=== PATIENT | male | born 1965 | race Caucasian/White ===

== ENCOUNTER 2017-09-21 10:48 | Outpatient (CLI) | payer BC | END 2017-09-21 10:49 | disposition home or self-care (01) | LOC: CTENTCT 10:48 | PROVIDERS: ATTEND Specialist | DX: J34.2 Deviated nasal septum (principal) | CPT/HCPCS: 70486 ==

== ENCOUNTER 2018-01-03 08:09 | Outpatient (CLI) | payer OTHER ==
--- NOTE | 2018-01-03 09:51 | MRI ---
CERVICAL SPINE MRI WITHOUT CONTRAST: Date: 01-03-18 History: Degenerative disc disease, neck pain, arthritis. Technique: Multiplanar, multisequence MR imaging of the cervical spine provided without contrast. FINDINGS: The sagittal STIR imaging demonstrates no focal area of osseous marrow edema. There is a round lesion in the subcutaneous fat of the posterior right upper neck at the axial level of the C2-3 level measuring approximately 1.4 cm. This could represent a complex sebaceous cyst. Clin ical correlation is required. C2-3: No central canal or neural foraminal stenosis. C3-4: There is disc space narrowing and disc desiccation and anterior osteophyte formation and mild d isc bulge with partial effacement of the ventral thecal sac and minimal central canal stenosis. There is facet and uncal vertebral osteophyte formation noted bilaterally, right greater than left, with m ild bilateral neural foraminal stenosis, right greater than left. C4-5: Disc space narrowing, disc desiccation, disc bulge and anterior osteophyte formation. Partial e ffacement of ventral thecal sac with mild central canal stenosis. Significant bilateral facet and unc al vertebral osteophyte formation noted with moderate/severe bilateral neural foraminal stenosis, lef t greater than right. C5-6: There is disc space narrowing, disc desiccation, and mild disc bulge. There is partial effaceme nt of the ventral thecal sac. There is prominent posterior osteophyte in the left paracentral region extending into the left foraminal region with associated central canal stenosis laterally and moderat e neural foraminal stenosis. There is mild right neural foraminal stenosis on the basis of facet and uncal vertebral osteophyte formation. C6-7: Disc space narrowing and disc desiccation and disc bulge present with mild central canal stenos is. There is prominent bilateral facet and uncal vertebral osteophyte formation, right greater than l eft, with moderate/severe bilateral neural foraminal stenosis. C7-T1: No significant central canal or neural foraminal stenosis. The cervical cord demonstrates normal signal intensity. IMPRESSION: There is multilevel degenerative change noted within the cervical spine with multilevel significant n eural foraminal stenosis. Recommend CT examination of the cervical spine to better assess the degree of facet and uncovertebral osteophyte formation. CT will also better assess the nonspecific lesion wi thin the subcutaneous fat posteriorly on the right. Recommend performing the CT of the neck with IV c ontrast. POS: [facility]
== END 2018-01-03 08:10 | disposition home or self-care (01) ==
LOC: TBSIIMAG 08:09
PROVIDERS: ATTEND Neurological Surgery
DX: M50.30 Other cervical disc degeneration, unspecified cervical region (principal); M47.892 Other spondylosis, cervical region; M48.02 Spinal stenosis, cervical region; M25.78 Osteophyte, vertebrae
CPT/HCPCS: 72141

== ENCOUNTER 2019-10-05 13:33 | Outpatient (CLI) | payer OTHER ==
--- NOTE | 2019-10-05 14:02 | RAD ---
EXAM: XR Thoracic Spine 2 View PROVIDED CLINICAL HISTORY: Back pain COMPARISON: None FINDINGS: Thoracic alignment appears normal. Vertebral body heights appear preserved. Multilevel thoracic disc degenerative changes are seen, predominating involving the midthoracic spine. Pedicles appear intact. No lytic or blastic lesions aren't radiographically apparent. IMPRESSION: Thoracic disc degenerative change.
== END 2019-10-05 13:34 | disposition home or self-care (01) ==
LOC: BICRAD 13:33
PROVIDERS: ATTEND Chiropractor
DX: M53.84 Other specified dorsopathies, thoracic region (principal); M99.18 Subluxation complex (vertebral) of rib cage; M79.10 Myalgia, unspecified site; M47.816 Spondylosis without myelopathy or radiculopathy, lumbar region
CPT/HCPCS: 72070

== ENCOUNTER 2020-12-18 11:01 | Outpatient (CLI) | payer BC | END 2020-12-18 11:02 | disposition home or self-care (01) | LOC: BICCT 11:01 | PROVIDERS: ATTEND Nurse Practitioner Family | DX: R91.8 Other nonspecific abnormal finding of lung field (principal); J98.4 Other disorders of lung | CPT/HCPCS: 71260; 82565 ==

== ENCOUNTER 2021-11-04 09:15 | Outpatient (CLI) | payer BC ==
[2021-11-04 10:53] LABS: Hemoglobin 14.2 g/dL (13.5-17.5); Mean Corpuscular HGB CONC 33.3 g/dL (32.0-36.0); Mean Corpuscular Hemoglobin 29.6 pg (27.0-33.0); Mean Corpuscular Volume 88.9 fl (81.2-95.1); Mean Platelet Volume 10.6 fl (7.4-10.4); Platelet Count 307 10x3/uL (150-450); RBC Distribution Width 12.1 % (11.5-14.5); Red Blood Cell (RBC) Count 4.79 10x6/uL (4.32-5.72); White Blood Cell (WBC) Count 7.1 10x3/uL (3.5-10.5)
[2021-11-04 11:21] LABS: PTT 26.3 sec (22.0-33.0); Prothrombin Time 10.8 sec (9.5-12.1)
[2021-11-04 11:22] LABS: Anion Gap 13 mmol/L (10-20); BUN (Urea Nitrogen) 21 mg/dL (8.4-25.7); Calc. Creatinine Clearance 0 mL/min (70-130); Calcium 9.9 mg/dL (7.8-10.44); Carbon Dioxide 26 mmol/L (22-29); Chloride 107 mmol/L (98-107); Glucose 101 mg/dL (70-105); Potassium 4.3 mmol/L (3.5-5.1); Sodium 142 mmol/L (136-145)
[2021-11-04 21:44] LABS: SARS-CoV-2 PCR by NAA Not Detected (NotDetected)
== END 2021-11-04 09:16 | disposition home or self-care (01) ==
LOC: LABBT 09:15
PROVIDERS: ATTEND Urology
DX: Z01.818 Encounter for other preprocedural examination (principal); N43.3 Hydrocele, unspecified; Z20.822 Contact with and (suspected) exposure to COVID-19
CPT/HCPCS: 80048; 85027; 85610; 85730; 93005; 93010; U0003; U0005

== ENCOUNTER 2021-11-09 06:06 | Day surgery (SDC) | payer BC ==
[2021-10-29 10:25] VITALS: BMI 28.8
[2021-11-09] MEDS ORDERED: Bupivacaine 0.25% HCL 30 ML VIAL ONE (06:27)
[2021-11-09] MEDS ORDERED: Bacitracin Zinc Ointment 30 gm TUBE ONE (06:27)
[2021-11-09] MEDS ORDERED: Famotidine/PF 20 mg/2ml Vial ONE (06:43)
[2021-11-09] MEDS ORDERED: Fentanyl 100 MCG/2 ML VIAL ONE (06:43)
[2021-11-09] MEDS ORDERED: ceFAZolin 2 GM/Dextrose 50 ML IVPB ONE (07:15)
[2021-11-09] MEDS ORDERED: Midazolam HCl 2 mg/2 ml Vial ONE (07:18)
[2021-11-09] MEDS ORDERED: Ondansetron PF 4 MG/2 ML Vial ONE (07:30)
[2021-11-09] MEDS ORDERED: Lidocaine 1% PF 5 ML VIAL ONE (07:30)
[2021-11-09] MEDS ORDERED: Ketorolac Tromethamine 30 MG/ML VIAL ONE (07:30)
[2021-11-09] MEDS ORDERED: Dexamethasone 20 MG/5 ML VIAL ONE (07:30)
[2021-11-09] MEDS ORDERED: PROPOFOL 200 MG/20 ML VIAL ONE (07:30)
[2021-11-09] MEDS ORDERED: Metoclopramide HCl 10 MG/2 ML VIAL ONE (07:30)
== END 2021-11-09 11:04 | disposition home or self-care (01) ==
LOC: SDC 06:06
PROVIDERS: ATTEND Urology
PROC: 0VB60ZZ Excision of Right Tunica Vaginalis, Open Approach (ICD-10-PCS; principal; 2021-11-09)
DX: N43.3 Hydrocele, unspecified (principal); I10 Essential (primary) hypertension; E78.5 Hyperlipidemia, unspecified; M19.90 Unspecified osteoarthritis, unspecified site; Z79.1 Long term (current) use of non-steroidal anti-inflammatories (NSAID); Z79.899 Other long term (current) drug therapy
CPT/HCPCS: 88302; J0690; J1100; J1885; J2250; J2405; J2704; J2765; J3010; S0020; S0028

== ENCOUNTER 2022-10-06 08:35 | Outpatient (CLI) | payer BC | END 2022-10-06 08:36 | disposition home or self-care (01) | LOC: MRI 08:35 | PROVIDERS: ATTEND Nurse Practitioner Family | DX: G43.909 Migraine, unspecified, not intractable, without status migrainosus (principal) | CPT/HCPCS: 70551 ==

== ENCOUNTER 2025-05-14 07:50 | Outpatient (CLI) | payer BC ==
[2025-05-14] MEDS ORDERED: Iopamidol 370 76% 100 ML VIAL ONE (11:17)
== END 2025-05-14 07:51 | disposition home or self-care (01) ==
LOC: CT 07:50
PROVIDERS: ATTEND Internal Medicine
DX: C34.12 Malignant neoplasm of upper lobe, left bronchus or lung (principal); R91.8 Other nonspecific abnormal finding of lung field
CPT/HCPCS: 71260; 74177; Q9967

== ENCOUNTER 2025-06-23 13:11 | Inpatient (IN) | payer BC ==
[2025-06-23 14:36] LABS: #Basophils 0.05 10x3/uL (0.0-0.2); #Eosinophils 0.03 10x3/uL (0.0-0.7); #Monocytes 0.48 10x3/uL (0.11-0.59); #Neutrophils 4.94 10x3/uL (1.40-6.50); %Basophils 0.8 % (0.0-1.0); %Eosinophils 0.5 % (0.0-10.0); %Lymphocytes 13.1 % (21.0-51.0); %Monocytes 7.5 % (0.0-10.0); %Neutrophils 77.3 % (42.0-75.0); Hematocrit 46.3 % (42.0-52.0); Hemoglobin 15.9 g/dL (14.0-18.0); Mean Corpuscular Hemoglobin 29.7 pg (27.0-31.0); Mean Corpuscular Volume 86.4 fL (78.0-98.0); Platelet Count 227 10x3/uL (130-400); Red Blood Cell (RBC) Count 5.36 mill/uL (4.70-6.10); White Blood Cell (WBC) Count 6.39 10x3/uL (4.8-10.8)
[2025-06-23] MEDS ORDERED: Acetaminophen 500 MG TAB ONE (14:41)
[2025-06-23] MEDS ORDERED: diphenhydrAMINE 50 MG/ML VIAL ONE (14:41)
[2025-06-23] MEDS ORDERED: Prochlorperazine 10 MG/2 ML VIAL ONE (14:41)
[2025-06-23] MEDS ORDERED: Dexamethasone 4 MG TAB ONE (14:41)
[2025-06-23 15:00] LABS: ALT (SGPT) 17 U/L (Less than 45); AST (SGOT) 19 U/L (11-34); Albumin 4.0 g/dL (3.1-4.5); Alkaline Phosphatase 74 U/L (40-110); Anion Gap 15 mmol/L (10-20); BUN (Urea Nitrogen) 9 mg/dL (8.4-25.7); Bilirubin, Total 0.7 mg/dL (0.3-1.2); Calc. Creatinine Clearance 0 mL/min (70-130); Calcium 9.8 mg/dL (7.8-10.44); Carbon Dioxide 24 mmol/L (22-29); Chloride 102 mmol/L (98-107); Globulin 3.1 g/dL (2.4-3.5); Glucose 107 mg/dL (70-105); Potassium 3.7 mmol/L (3.5-5.1); Sodium 137 mmol/L (136-145)
[2025-06-23] MEDS ORDERED: Ondansetron PF 4 MG/2 ML Vial IVP PRN (19:26)
[2025-06-23] MEDS ORDERED: Acetaminophen 325 MG TAB PO PRN (19:26)
[2025-06-23 21:51] VITALS: BMI 26.4
[2025-06-24 04:23] LABS: #Basophils Less than 0.03 10x3/uL (0.0-0.2); #Eosinophils Less than 0.03 10x3/uL (0.0-0.7); #Monocytes 0.21 10x3/uL (0.11-0.59); #Neutrophils 6.80 10x3/uL (1.40-6.50); %Basophils 0.2 % (0.0-1.0); %Eosinophils 0.0 % (0.0-10.0); %Lymphocytes 12.8 % (21.0-51.0); %Monocytes 2.6 % (0.0-10.0); %Neutrophils 83.8 % (42.0-75.0); Hematocrit 45.5 % (42.0-52.0); Hemoglobin 15.8 g/dL (14.0-18.0); Mean Corpuscular Hemoglobin 29.5 pg (27.0-31.0); Mean Corpuscular Volume 84.9 fL (78.0-98.0); Platelet Count 246 10x3/uL (130-400); Red Blood Cell (RBC) Count 5.36 mill/uL (4.70-6.10); White Blood Cell (WBC) Count 8.12 10x3/uL (4.8-10.8)
[2025-06-24 05:06] LABS: Anion Gap 15 mmol/L (10-20); BUN (Urea Nitrogen) 16 mg/dL (8.4-25.7); Calc. Creatinine Clearance 92 mL/min (70-130); Calcium 9.7 mg/dL (7.8-10.44); Carbon Dioxide 22 mmol/L (22-29); Chloride 105 mmol/L (98-107); Glucose 148 mg/dL (70-105); Potassium 3.9 mmol/L (3.5-5.1); Sodium 138 mmol/L (136-145)
[2025-06-24] MEDS: Dexamethasone 10 MG/ML VIAL SLOW IVP SCH (08:31)
[2025-06-24] MEDS: Metoprolol Succinate XL 50 MG ER.TAB PO SCH (08:34)
[2025-06-24] MEDS: SELPERCATINIB PO SCH (20:36)
[2025-06-24] MEDS: lamoTRIgine 100 MG TAB PO SCH (20:36)
[2025-06-25 03:54] LABS: #Basophils 0.03 10x3/uL (0.0-0.2); #Eosinophils Less than 0.03 10x3/uL (0.0-0.7); #Monocytes 0.60 10x3/uL (0.11-0.59); #Neutrophils 12.26 10x3/uL (1.40-6.50); %Basophils 0.2 % (0.0-1.0); %Eosinophils 0.0 % (0.0-10.0); %Lymphocytes 8.9 % (21.0-51.0); %Monocytes 4.2 % (0.0-10.0); %Neutrophils 85.9 % (42.0-75.0); Hematocrit 40.7 % (42.0-52.0); Hemoglobin 14.1 g/dL (14.0-18.0); Mean Corpuscular Hemoglobin 29.8 pg (27.0-31.0); Mean Corpuscular Volume 86.0 fL (78.0-98.0); Platelet Count 240 10x3/uL (130-400); Red Blood Cell (RBC) Count 4.73 mill/uL (4.70-6.10); White Blood Cell (WBC) Count 14.27 10x3/uL (4.8-10.8)
[2025-06-25 04:12] LABS: Anion Gap 12 mmol/L (10-20); BUN (Urea Nitrogen) 17 mg/dL (8.4-25.7); Calc. Creatinine Clearance 112 mL/min (70-130); Carbon Dioxide 24 mmol/L (22-29); Chloride 107 mmol/L (98-107); Potassium 4.1 mmol/L (3.5-5.1); Sodium 139 mmol/L (136-145)
[2025-06-25 04:13] LABS: Calcium 9.0 mg/dL (7.8-10.44); Glucose 132 mg/dL (70-105); Magnesium 2.2 mg/dL (1.6-2.6)
[2025-06-25 12:17] VITALS: BP 140/88; TEMP 98
== END 2025-06-25 12:37 | disposition home or self-care (01) | DRG 54 ==
LOC: ERS 13:11 → 2SE 19:28 → OBSVTOIN 06-24 14:48
PROVIDERS: ADMIT Internal Medicine; ATTEND Internal Medicine
DX: C79.31 Secondary malignant neoplasm of brain (principal); G93.6 Cerebral edema; C34.90 Malignant neoplasm of unspecified part of unspecified bronchus or lung; E87.6 Hypokalemia; D33.0 Benign neoplasm of brain, supratentorial; J38.00 Paralysis of vocal cords and larynx, unspecified; D72.828 Other elevated white blood cell count; E86.0 Dehydration; R73.9 Hyperglycemia, unspecified; T50.905A Adverse effect of unspecified drugs, medicaments and biological substances, initial encounter; I10 Essential (primary) hypertension; Z79.899 Other long term (current) drug therapy; Z98.890 Other specified postprocedural states
CPT/HCPCS: 36415; 36416; 70450; 80048; 80053; 83735; 85025; 96374; 96375; G0378; J0780; J1100; J1200; J7030; J8540